=== PATIENT | female | born 1945 | race Caucasian/White ===

== ENCOUNTER 2016-11-28 12:25 | Outpatient (CLI) ==
[2016-11-28 13:36] LABS: BASOPHILS # (AUTO) 0.1 K/uL (0-0.2); BASOPHILS % (AUTO) 1.1 % (0.0-3.0); EOSINOPHILS # (AUTO) 0.3 K/ul (0.0-0.7); EOSINOPHILS % (AUTO) 3.3 % (0.0-7.0); HEMATOCRIT 45.3 % (37.0-47.0); HEMOGLOBIN 15.3 g/dl (12.0-16.0); IMMATURE GRANULOCYTE % (AUTO) 0.3 % (0.0-5.0); LYMPHOCYTES # (AUTO) 1.6 K/uL (0.60-3.4); LYMPHOCYTES % (AUTO) 21.4 (10.0-50.0); MEAN CORPUSCULAR HEMOGLOBIN 30.1 pg (27.0-31.0); MEAN CORPUSCULAR HGB CONC 33.8 (31.8-35.4); MONOCYTES # (AUTO) 0.5 K/uL (0.4-2.0); MONOCYTES % (AUTO) 6.3 (0-10); NEUTROPHILS # (AUTO) 5.2 K/ul (2.0-6.9); NEUTROPHILS % (AUTO) 67.6; PLATELET COUNT 249 10^3/uL (140-440); RED BLOOD COUNT 5.09 10^6/ul (4.20-5.40); WHITE BLOOD COUNT 7.61 K/ul (4.6-10.2)
[2016-11-28 13:50] LABS: ALBUMIN 4.2 g/dL (3.4-5.0); ALBUMIN/GLOBULIN RATIO 1.11; BILIRUBIN,TOTAL 0.35 mg/dL (0.00-1.20); BUN/CREATININE RATIO 13.09; CALCIUM 10.1 mg/dL (8.2-10.2); CHOL/HDL RATIO 4.4 (4.5-5.5); CREATININE 0.84 mg/dL (0.60-1.30)
[2016-11-28 13:55] LABS: PARTIAL THROMBOPLASTIN TIME 25.6 SEC (23.9-40.0)
== END 2016-11-28 12:26 | disposition home or self-care (01) ==
LOC: LAB 12:25
PROVIDERS: ATTEND Nurse Practitioner Family
DX: G44.89 Other headache syndrome (principal); I63.9 Cerebral infarction, unspecified
CPT/HCPCS: 36415; 80053; 80061; 85025; 85610; 85730

== ENCOUNTER 2016-11-30 10:11 | Outpatient (CLI) ==
--- NOTE | 2016-11-30 12:43 | MRI ---
EXAM: MRI brain without and with IV contrast. DATE: 30 November 2016. HISTORY: Headache syndrome. Head trauma 50 years ago. TECHNIQUE: Sagittal T1W pre and postcontrast, axial T2W, axial FLAIR, axial T1W pre and postcontras t, axial DWI, coronal T1W postcontrast, and coronal T2W GRE sequences of the brain were obtained usi ng 1.5 Drea magnet. CONTRAST: Omniscan - 11 ml IV. COMPARISON: CT head 11/11/2016. MRI brain 18 June 2013. FINDINGS: The ventricles, cisterns, and sulci are enlarged due to atrophy. CSF spaces overlying th e superior vertex of the frontal and parietal lobes are prominent, without loculated fluid collectio n / hemorrhage. No midline shift or herniation is apparent. No acute infarct, hemorrhage or enhanc ing neoplasm is identified. No abnormal contrast enhancement is identified in the brain, meninges o r dura. Narrow, confluent rim of T2W/FLAIR hyperintensity is seen in the white matter abutting the anterior horn and body of each lateral ventricle. Small number of 2-6 mm, T2W/FLAIR bright, non-enh ancing foci are scattered in the gupta radiata, centrum semiovale and subcortical white matter bila terally. A 9 x 8 x 5 mm region of clustered T2W bright, T1W/FLAIR dark, non-enhancing foci in the r ight putamen and anterior limb internal capsule is very similar to May 2013. Several 2-5 mm FLAI R slightly bright foci are noted within the wan. The rowland - white matter differentiation is normal . Punctate areas of T2W GRE dark signal within each basal ganglia appear benign. No migration or d iverticulation abnormality is identified. No mesial temporal sclerosis is detected.. The 7th/8th c ranial nerve complexes, cerebellopontine angles, and visible cervical spinal cord are normal. There is no cerebellar tonsillar ectopia. The pituitary gland is normal in size and signal. Corpus call osum is normal in size and configuration. Flow voids are present in the major intracranial arteries and in the dural venous sinuses. Left vertebral artery is dominant. Basilar artery slightly small in diameter (1.9 mm). No aneurysm, AVM or dural venous sinus thrombosis is apparent. Change in th e lens of each eye suggests prior cataract surgery. Distortion at the anterior margin of the globe of each eye is likely due to mascara. No other orbit abnormality is identified. The mastoid air ce lls are unremarkable. There is minor mucosal thickening in multiple ethmoid air cells, sphenoid sin us, and both maxillary sinuses. Frontal sinuses are hypoplastic. No neck mass or lymphadenopathy i s detected. No calvarial neoplasm or acute fracture is evident. IMPRESSIONS: 1. No acute infarct, hemorrhage, mass or hydrocephalus. 2. 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 3. Mild/moderate cerebral and minor cerebellar atrophy. 4. Slightly small basilar artery, without focal stenosis. 5. Prominent Virchow-Jeremy spaces in the right basal ganglia. 6. Slightly narrow basilar artery - may cause arterial insufficiency. 7. Multifocal minor sinus mucosal disease.
--- NOTE | 2016-11-30 13:07 | US ---
EXAM: Bilateral carotid artery Doppler History: Headache and dizziness. Technique: Multiple sonographic images through the bilateral internal carotid arteries were obtaine d. Color duplex Doppler was used to interrogate vascular flow. Findings: The right ICA peak systolic velocities within normal limits measuring 0.8 meters per second. The ri ght ICA/cca PSV ratio is normal at 1.3. The right vertebral artery is patent and demonstrates anteg rade flow. Byrne scale images demonstrate mild plaque buildup. The left ICA peak systolic velocity is within normal limits measuring 0.9 meters per second. The le ICA/cca PSV ratio is normal at 1.7. The left vertebral artery is patent and demonstrates antegra de flow. Byrne scale images demonstrate a moderate amount of heterogeneous plaque buildup within the left internal carotid artery. Impression: No significant hemodynamic stenosis of the bilateral internal carotid arteries accordin g to the ratios and peak systolic velocities. Byrne scale images demonstrate a moderate heterogeneou s plaque buildup within the left internal carotid artery.
== END 2016-11-30 10:12 | disposition home or self-care (01) ==
LOC: RAD 10:11
PROVIDERS: ATTEND Nurse Practitioner Family
DX: G44.89 Other headache syndrome (principal); I63.9 Cerebral infarction, unspecified; R42 Dizziness and giddiness

== ENCOUNTER 2017-07-08 09:09 | Outpatient (CLI) ==
[2017-07-08 09:25] LABS: BASOPHILS # (AUTO) 0.1 K/uL (0-0.2); BASOPHILS % (AUTO) 1.1 % (0.0-3.0); EOSINOPHILS # (AUTO) 0.3 K/ul (0.0-0.7); HEMATOCRIT 42.7 % (37.0-47.0); HEMOGLOBIN 14.6 g/dl (12.0-16.0); IMMATURE GRANULOCYTE % (AUTO) 0.2 % (0.0-5.0); LYMPHOCYTES # (AUTO) 1.9 K/uL (0.60-3.4); LYMPHOCYTES % (AUTO) 22.8 (10.0-50.0); MEAN CORPUSCULAR HEMOGLOBIN 30.3 pg (27.0-31.0); MEAN CORPUSCULAR HGB CONC 34.2 (31.8-35.4); MEAN CORPUSCULAR VOLUME 88.6 fl (81.0-99.0); MONOCYTES # (AUTO) 0.5 K/uL (0.4-2.0); MONOCYTES % (AUTO) 6.3 (0-10); NEUTROPHILS # (AUTO) 5.5 K/ul (2.0-6.9); NEUTROPHILS % (AUTO) 66.6; PLATELET COUNT 236 10^3/uL (140-440); RED BLOOD COUNT 4.82 10^6/ul (4.20-5.40); WHITE BLOOD COUNT 8.28 K/ul (4.6-10.2)
[2017-07-08 09:42] LABS: ALBUMIN 3.8 g/dL (3.4-5.0); ALBUMIN/GLOBULIN RATIO 1.09; ANION GAP 13.3; BILIRUBIN,TOTAL 0.41 mg/dL (0.00-1.20); BUN/CREATININE RATIO 14.28; CALCIUM 9.9 mg/dL (8.2-10.2); CHOL/HDL RATIO 2.8 (4.5-5.5); CREATININE 0.84 mg/dL (0.60-1.30); POTASSIUM 4.3 mmol/L (3.5-5.10); TOTAL PROTEIN 7.3 g/dL (5.8-8.1)
== END 2017-07-08 09:10 | disposition home or self-care (01) ==
LOC: LAB 09:09
PROVIDERS: ATTEND Nurse Practitioner Family
DX: E75.6 Lipid storage disorder, unspecified (principal); Z86.73 Personal history of transient ischemic attack (TIA), and cerebral infarction without residual deficits
CPT/HCPCS: 36415; 80053; 80061; 85025